=== PATIENT | female | born 1935 | race Caucasian/White ===

== ENCOUNTER 2017-12-28 06:31 | Outpatient (CLI) ==
[2015-08-10 09:22] VITALS: BMI 32.5
--- NOTE | 2017-12-30 12:38 | ECHOSTRESS ---
Date of Exam: 12/28/17 Ordering Physician: DR. MATILDE ZALDIVAR Reason for Echo: CHEST PAIN, SOB, STRESS TEST--BORDERLINE ISCHEMIA M-Mode Normal Adult Results LV Dimensions Normal Adult Results AoV Opening excursions >1.6 LVEDD-base- 3.5-5.8 Ao root dimensions 2.0-3.7 LVESD-base- 3.1-4.6 L. Atrium dimensions 1.9-3.8 Post. Wall thickness 0.8-1.1 IV septum (thickness) 0.7-1.2 Post. Wall excursion 0.72-1.3 Septal motion Systolic motion R. Ventricular cavity 1.5-2.0 LVEF 60% Paradoxical septal wall motion 2-D: NORMAL LEFT VENTRICULAR CONTRACTILITY--RESTING AND POST EXERCISE M-MODE: MV: AV: TV: PV: CHAMBER SIZE: WALL MOTION: NORMAL LEFT VENTRICULAR CONTRACTILITY--RESTING AND POST EXERCISE PERICARDIUM: INTERPRETATION: 1. NORMAL LEFT VENTRICULAR CONTRACTILITY--RESTING AND POST EXERCISE MTDD
--- NOTE | 2017-12-30 12:53 | STRESSMOD ---
Date of Test: 12/28/17 Ordering Physician: DR. MATILDE ZALDIVAR Occupation: RETIRED Reason for Exam: CHEST PAIN, SOB Height: 64" Weight: 104 LBS Current Medications: COZAAR, ZIAC, SIMVASTATIN, VITAMIN D, ASA Resting EKG: SINUS RHYTHM/NO ACUTE CHANGES Target Heart Rate: 119/140 S-T SEGMENT STAGE MPH/GRADE HEART RATE BPM BLOOD PRESSURE mmhg RHYTHM +/- ELEVATION DEPRESSION SYMPTOMS,COMMENTS At Rest 63 122/78 SR X NONE 1 1.7/0% 85 136/70 SR X NONE 2 1.7/5% 142/70 SR X NONE 3 1.7/10% 4 2.5/12% 5 3.4/14% Immediately After 95 SR X FATIGUE Minutes Post Exercise 3:00 73 126/78 SR X NO COMMENTS Minutes Post Exercise 4:00 69 SR X NO COMMENTS DURATION OF EXERCISE: 6:19 MAXIMUM HEART RATE REACHED: 95 BPM REASON FOR TERMINATION: FATIGUE 98% OXYGEN SATURATION WITH EXERCISE ON ROOM AIR METS 4.0 INTERPRETATION: 1. STRESS TEST POSITIVE FOR ISCHEMIC ST-T WAVE CHANGES (BORDERLINE--EQUIVOCAL DID NOT REACH TARGET HEART RATE 2. NO CHEST PAIN OR DISCOMFORT 3. BLOOD PRESSURE RESPONSE- NORMAL 4. NO ARRHYTHMIAS COOPER LEFT VENTRICULAR CONTRACTILITY--RESTING AND POST EXERCISE MTDD
== END 2017-12-28 06:32 | disposition home or self-care (01) ==
LOC: CAR 06:31
PROVIDERS: ATTEND Internal Medicine
DX: R06.02 Shortness of breath (principal); R07.89 Other chest pain

== ENCOUNTER 2018-01-05 06:45 | Outpatient (CLI) ==
[2015-08-10 09:22] VITALS: BMI 32.5
[2018-01-05] MEDS ORDERED: ATROPINE SULFATE PFS ONE (06:59)
[2018-01-05] MEDS ORDERED: D5W IV SCH (09:00)
[2018-01-05] MEDS ORDERED: DOBUTAMINE IV SCH (09:00)
--- NOTE | 2018-01-05 10:22 | NM ---
Cardiac Stress Test HISTORY: Chest pain. Shortness of breath. COMPARISON: None of this type. TECHNIQUE: Resting: The patient was injected with 3.5 mCi of thallium 201 chloride intravenously after which a "resting" SPECT study of the heart was performed. Stress: The patient was stressed pharmacologically with dobutamine and at the appropriate time injec raad with 25 millicuries of 99m technetium Sestamibi (Cardiolite) after which a "stress" SPECT study o f the heart was performed. Gated images of the heart were also obtained to assess wall motion and pj culate ejection fraction. For details of the stress protocol employed, reference is made to the sepa rate report of the performing physician. FINDINGS: The stress perfusion images demonstrate a generally uniform distribution of activity in th e left ventricular myocardium. Incidental note is made of bowel activity underlying the heart on the resting images. The resting perfusion images demonstrate no evidence of significant redistribution/is chemia. The left ventricular ejection fraction (LVEF) is 70%. IMPRESSION: 1. Left ventricular myocardial perfusion is within normal limits. 2. The left ventricular ejection fraction (LVEF) is 70%.
--- NOTE | 2018-01-07 09:22 | DOBSTECHST ---
Ordering Physician: DR. MATILDE ZALDIVAR Date of Test: 01/05/18 Occupation: RETIRED Reason for Examination: CHEST PAIN Height: 65" Weight: 200 LBS Current Medications: COZAAR, ZIAC, SIMVASTATIN, VITAMIN D, ASA Target Heart Rate: 119/140 S-T Segment Stage Time HR BPM BP MMHG Rhythm +/- Elevation Depression Comments/ Symptoms Control Sitting 55 106/82 SR X NONE Dobutamine 250mg/D5W X 5cmg/KG/mn X 10cmg/KG/mn 3:00 59 SR X NONE 15cmg/KG/mn 2:00 65 122/76 SR X NONE 20cmg/KG/mn 2:00 75 SR X NONE 25cmg/KG/mn 2:00 85 136/74 SR X NONE 30cmg/KG/mn 2:00 88 SR X NONE 35cmg/KG/mn 2:00 92 138/68 SR X NONE 40cmg/KG/mn 6:35 104 140/64 SR X 0.125 ATROPINE 4:00 MIN POST INFUSION z 88 108/70 SR X NO COMMENTS 7:00 MIN POST INFUSION z 82 NO COMMENTS DURATION OF INFUSION 19:35 MAXIMUM HEART RATE REACHED 104 BPM Interpretation: 1. NO EVIDENCE OF ISCHEMIA BY ST-T WAVE 2. NO CHEST PAIN OR DISCOMFORT 3. NORMAL LEFT VENTRICULAR CONTRACTILITY--RESTING AND WITH DOBUTAMINE INFUSION SESTAMIBI TO FOLLOW MTDD
--- NOTE | 2018-01-07 11:22 | ECHOSTRESS ---
Date of Exam: 01/05/18 Ordering Physician: DR. MATILDE ZALDIVAR Reason for Echo: CHEST PAIN, DOBUTAMINE STRESS --NO ISCHEMIA M-Mode Normal Adult Results LV Dimensions Normal Adult Results AoV Opening excursions >1.6 LVEDD-base- 3.5-5.8 Ao root dimensions 2.0-3.7 LVESD-base- 3.1-4.6 L. Atrium dimensions 1.9-3.8 Post. Wall thickness 0.8-1.1 IV septum (thickness) 0.7-1.2 Post. Wall excursion 0.72-1.3 Septal motion Systolic motion R. Ventricular cavity 1.5-2.0 LVEF 60% Paradoxical septal wall motion 2-D: NORMAL LEFT VENTRICULAR CONTRACTILITY RESTING AND WITH DOBUTAMINE INFUSION M-MODE: MV: AV: TV: PV: CHAMBER SIZE: WALL MOTION: NORMAL LEFT VENTRICULAR CONTRACTILITY RESTING AND WITH DOBUTAMINE INFUSION PERICARDIUM: INTERPRETATION: 1. NORMAL LEFT VENTRICULAR CONTRACTILITY RESTING AND WITH DOBUTAMINE INFUSION MTDD
== END 2018-01-05 06:46 | disposition home or self-care (01) ==
LOC: CAR 06:45
PROVIDERS: ATTEND Internal Medicine
DX: R06.02 Shortness of breath (principal); R07.9 Chest pain, unspecified